=== PATIENT | female | born 1980 | race Asian ===

== ENCOUNTER 2017-01-11 15:47 | Inpatient (IN) | payer SELFPAY ==
[~2017-01-11] VITALS: Ht 167.6 cm; Wt 72.6 kg
[2017-01-11] MEDS: OXYTOCIN 20 UNITS/LR PREMIX 1,000 ML IV SCH (08:20)
[2017-01-11] MEDS ORDERED: LACTATED RINGERS 1,000 ML IV SCH (16:05)
[2017-01-11] MEDS ORDERED: CITRIC ACID/SODIUM CITRATE 30 ML UDC PO SCH (16:10)
[2017-01-11 16:57] LABS: BASOPHILS # (AUTO) 0.1 K/uL (0.00-0.22); BASOPHILS % (AUTO) 1.2 % (0.0-2.0); EOSINOPHILS # (AUTO) 0.1 K/uL (0-0.4); EOSINOPHILS % (AUTO) 1.2 % (0.0-4.0); HEMATOCRIT 37.2 % (36-48); HEMOGLOBIN 12.4 g/dL (12.0-16.0); LYMPHOCYTES # (AUTO) 1.7 K/uL (2.5-16.5); LYMPHOCYTES % (AUTO) 20.6 % (20.5-51.1); MEAN CORPUSCULAR HEMOGLOBIN 32 pg (27-31); MEAN CORPUSCULAR HGB CONC 34 g/dL (33-37); MEAN CORPUSCULAR VOLUME 95 fL (80-94); MONOCYTES # (AUTO) 0.4 K/uL (0.8-1.0); MONOCYTES % (AUTO) 5.3 % (1.7-9.3); NEUTROPHILS # (AUTO) 5.8 K/uL (1.8-7.7); NEUTROPHILS % (AUTO) 71.7 % (42.2-75.2); PLATELET COUNT (AUTO) 197 K/uL (140-450); RED BLOOD CELL COUNT(AUTO) 3.93 MIL/uL (4.20-5.40); RED CELL DISTRIBUTION WIDTH 12.8 % (11.6-13.7); WHITE BLOOD COUNT (AUTO) 8.1 K/uL (4.8-10.8)
[2017-01-11 17:23] VITALS: BP 106/70
[2017-01-11 17:34] LABS: ANION GAP 14.4 (8-16); CALCIUM 8.6 mg/dL (8.5-10.1); CARBON DIOXIDE 23.6 mmol/L (21-32); CREATININE 0.6 mg/dL (0.6-1.3)
[2017-01-11 17:40] LABS: ALBUMIN 2.6 g/dL (3.4-5.0); TOTAL BILIRUBIN 0.2 mg/dL (0.0-1.0); TOTAL PROTEIN, SERUM 6.7 g/dL (6.4-8.2)
[2017-01-11 17:57] LABS: HIV RAPID SCREEN NON-REACTIVE (NON REACTIV)
[2017-01-11 18:24] LABS: APPEARANCE,URINE CLEAR (CLEAR); BILIRUBIN,URINE NEGATIVE (NEGATIVE); BLOOD, URINE NEGATIVE (NEGATIVE); COLOR,URINE YELLOW (YELLOW); LEUKOCYTE ESTERASE ,URINE NEGATIVE (NEGATIVE); NITRITE, URINE NEGATIVE (NEGATIVE); PROTEIN,URINE NEGATIVE (NEGATIVE); UGLUCOSE NEGATIVE (NEGATIVE); UROBILINOGEN,URINE 0.2 EU/dL (0.2 - 1)
[2017-01-11] MEDS ORDERED: OXYTOCIN 10 UNITS/ML VIAL ONE ×2 (19:20→20:40)
[2017-01-11] MEDS ORDERED: TRIAMCINOLONE 10 MG/ML 5ML VIAL ONE (19:20)
[2017-01-11 19:45] LABS: BACTERIA,URINE FEW /HPF (None Seen); RBC,URINE 0-5 (RARE) /HPF (0-5); SQUAMOUS EPITHELIAL CELL,UR FEW /LPF (0-3 (FEW)); WBC,URINE NONE SEEN /HPF (0-5)
[2017-01-11] MEDS ORDERED: BUPIVACAINE-MPF 0.75% 10 ML VIAL INJ ONE (20:40)
[2017-01-11] MEDS ORDERED: ePHEDrine 50 MG/ML VIAL ONE (20:40)
[2017-01-11] MEDS ORDERED: METHYLERGONOVINE 0.2 MG/ML AMP ONE (20:49)
[2017-01-11] MEDS ORDERED: fentaNYL 0.05 MG/ML VIAL ONE (20:55)
[2017-01-11] MEDS ORDERED: MORPHINE PRES FREE 10 MG/10 ML AMP IV ONE (20:55)
[2017-01-11] MEDS ORDERED: MORPHINE SULFATE 10 MG/ML SYR ONE (20:55)
[2017-01-11] MEDS ORDERED: NALBUPHINE 10 MG/ML AMP IVP PRN (21:20)
[2017-01-11] MEDS ORDERED: diphenhydrAMINE 50 MG/ML VIAL IVP PRN (21:20)
[2017-01-11] MEDS ORDERED: ONDANSETRON 4 MG/2 ML VIAL IVP PRN ×2 (21:20)
[2017-01-11] MEDS ORDERED: KETOROLAC 60 MG/2 ML VIAL IM PRN (21:20)
[2017-01-11] MEDS ORDERED: NALOXONE 0.4 MG/ML VIAL IVP PRN ×3 (21:20)
[2017-01-11] MEDS ORDERED: ONDANSETRON 4 MG/2 ML VIAL ONE (21:53)
[2017-01-11] MEDS ORDERED: OXYTOCIN 20 UNITS/LR PREMIX 1,000 ML IV ONE (21:56)
[2017-01-11] MEDS ORDERED: TEMAZEPAM 15 MG CAP PO PRN (23:05)
[2017-01-11] MEDS ORDERED: TRIMETHOBENZAMIDE 200 MG/2 ML SYR IM PRN (23:05)
[2017-01-11] MEDS ORDERED: HYDROcodone/APAP 5/325 MG 1 TAB TAB PO PRN (23:05)
[2017-01-11] MEDS ORDERED: MEASLES, MUMPS, AND RUBELLA 1 VIAL SQVAC PRN (23:05)
[2017-01-11] MEDS ORDERED: oxyCODONE/APAP 5/325 MG 1 TAB TAB PO PRN (23:05)
[2017-01-11] MEDS ORDERED: METHYLERGONOVINE 0.2 MG/ML AMP IM PRN (23:05)
[2017-01-12 06:25] LABS: BASOPHILS % (AUTO) 0.2 % (0.0-2.0); EOSINOPHILS # (AUTO) 0.2 K/uL (0-0.4); EOSINOPHILS % (AUTO) 1.3 % (0.0-4.0); HEMATOCRIT 34.2 % (36-48); HEMOGLOBIN 11.2 g/dL (12.0-16.0); LYMPHOCYTES % (AUTO) 7.1 % (20.5-51.1); MEAN CORPUSCULAR HEMOGLOBIN 31 pg (27-31); MEAN CORPUSCULAR HGB CONC 33 g/dL (33-37); MEAN CORPUSCULAR VOLUME 96 fL (80-94); MONOCYTES # (AUTO) 0.5 K/uL (0.8-1.0); MONOCYTES % (AUTO) 3.2 % (1.7-9.3); NEUTROPHILS # (AUTO) 12.7 K/uL (1.8-7.7); NEUTROPHILS % (AUTO) 88.2 % (42.2-75.2); PLATELET COUNT (AUTO) 179 K/uL (140-450); RED BLOOD CELL COUNT(AUTO) 3.57 MIL/uL (4.20-5.40); RED CELL DISTRIBUTION WIDTH 12.5 % (11.6-13.7); WHITE BLOOD COUNT (AUTO) 14.4 K/uL (4.8-10.8)
--- NOTE | 2017-01-12 07:48 | NUR ---
PATIENT HAS BEEN SCREENED AND CATEGORIZED LOW NUTRITION RISK. PATIENT WILL BE SEEN WITHIN 7 DAYS OF ADMISSION. 01/18/[address]
[2017-01-12 14:01] LABS: RAPID PLASMA REAGIN NON-REACTIVE (Non Reactiv)
[2017-01-12] MEDS ORDERED: METF500T64 PO (14:15)
[2017-01-12] MEDS ORDERED: PREN-380 PO (14:16)
[2017-01-12] MEDS ORDERED: FERR-193 PO (14:16)
[2017-01-12] MEDS: OXYTOCIN 20 UNITS/LR PREMIX 1,000 ML IV SCH (15:40)
[2017-01-12] MEDS: SIMETHICONE 80 MG TAB.CHEW PO PRN (21:05)
[2017-01-12] MEDS: DOCUSATE SOD/SENNA 50/8.6 MG 1 TAB PO SCH (21:07)
[2017-01-12] MEDS: IBUPROFEN 800 MG TAB PO PRN (22:02)
[2017-01-13] MEDS: IBUPROFEN 800 MG TAB PO PRN (19:36)
[2017-01-13] MEDS: DOCUSATE SOD/SENNA 50/8.6 MG 1 TAB PO SCH (20:57)
[2017-01-14] MEDS: SIMETHICONE 80 MG TAB.CHEW PO PRN (08:58)
[2017-01-14] MEDS ORDERED: IBUP-2213 PO (10:53)
== END 2017-01-14 12:50 | disposition home or self-care (01) | DRG 765 ==
LOC: MLD 15:47 → MFCC 22:45
PROVIDERS: ADMIT Obstetrics & Gynecology; ATTEND Obstetrics & Gynecology
PROC: 10D00Z1 Extraction of Products of Conception, Low, Open Approach (ICD-10-PCS; principal; 2017-01-11 20:45)
PROC: 3E0234Z Introduction of Serum, Toxoid and Vaccine into Muscle, Percutaneous Approach (ICD-10-PCS; 2017-01-13)
PROC: 3E0234Z Introduction of Serum, Toxoid and Vaccine into Muscle, Percutaneous Approach (ICD-10-PCS; 2017-01-13)
DX: O34.211 Maternal care for low transverse scar from previous cesarean delivery (principal); O24.92 Unspecified diabetes mellitus in childbirth; Z37.0 Single live birth; Z3A.39 39 weeks gestation of pregnancy; Z23 Encounter for immunization; O09.529 Supervision of elderly multigravida, unspecified trimester; Z83.3 Family history of diabetes mellitus; O09.03 Supervision of pregnancy with history of infertility, third trimester
CPT/HCPCS: 36415; 80053; 81001; 85025; 86592; 86886; 86900; 86901; 90707; 90715; J0690; J2210; J2270; J2405; J2590; J3010; J3301; J3490; J7060; J7120